=== PATIENT | female | born 1975 | race African-American/Black ===

== ENCOUNTER 2017-03-06 12:13 | Emergency (ER) | payer SELFPAY ==
[~2017-03-06] VITALS: Ht 162.6 cm; Wt 55.0 kg
[2017-03-06 13:35] LABS: EOSINOPHILS % 3.3 % (0.0-5.0); HEMATOCRIT. 38.4 % (36.0-48.0); HEMOGLOBIN. 12.6 g/dL (12.0-16.0); MEAN CORPUSCULAR HEMOGLOBIN 27.9 pg (28.0-32.0); MEAN PLATELET VOLUME 7.3 fl (7.4-10.4); MONOCYTES % 8.6 % (2.0-8.0); NEUTROPHILS % 61.1 % (40.0-76.0); PLATELET 356 x1000/uL (130-400); RED BLOOD CELL COUNT 4.52 mill/uL (4.2-5.4); RED CELL DISTRIBUTION WIDTH 13.8 % (11.6-14.6)
[2017-03-06 13:51] LABS: CARBON DIOXIDE 29 mEq/L (21-32); CHLORIDE 107 mEq/L (98-107); ETHANOL BLOOD < 10 mg/dL
[2017-03-06 14:28] LABS: HCG SCREEN NEGATIVE
[2017-03-06] MEDS ORDERED: LORAZEPAM 2MG/ML CPJ IM ONE (14:45)
[2017-03-06] MEDS ORDERED: OLANZAPINE 10 MG/VIAL IM ONE (14:45)
[2017-03-06 17:01] LABS: *AMPHETAMINES SCREEN URINE NEGATIVE (NEGATIVE); *BARBITURATES SCREEN URINE NEGATIVE (NEGATIVE); *BENZODIAZEPINES SCREEN URINE NEGATIVE (NEGATIVE); *COCAINE SCREEN URINE NEGATIVE (NEGATIVE); CANNABINOID URINE SCREEN NEGATIVE (NEGATIVE); METHADONE URINE SCREEN NEGATIVE (NEGATIVE); OPIATES URINE SCREEN NEGATIVE (NEGATIVE); PHENCYCLIDINE URINE SCREEN NEGATIVE (NEGATIVE)
[2017-03-07] MEDS: OLANZAPINE 5MG TABLET ODT PO SCH ×2 (09:14→17:37)
[2017-03-08] MEDS: OLANZAPINE 5MG TABLET ODT PO SCH ×2 (09:13→17:46)
[2017-03-09 00:29] VITALS: BP 99/66
== END 2017-03-09 00:35 ==
LOC: ER 12:30
DX: F23 Brief psychotic disorder (principal)
CPT/HCPCS: 36415; 70450; 73090; 80048; 80305; 80307; 80329; 84703; 85025; 96372; 99285; G0482; J2060; J3490